=== PATIENT | female | born 1965 | race Caucasian/White ===

== ENCOUNTER → 2017-04-03 | Outpatient (CLI) | payer MEDICAID ==
[~2017-04-03] MED LIST: GADOBUTROL 10 ML VIAL IVP ONE
== END ==
LOC: FIMAGING 11:45
PROVIDERS: ATTEND Psychiatry & Neurology Neurology
DX: R90.82 White matter disease, unspecified (principal); M50.33 Other cervical disc degeneration, cervicothoracic region; M50.822 Other cervical disc disorders at C5-C6 level
CPT/HCPCS: A9585

== ENCOUNTER → 2017-12-10 | Outpatient (CLI) | payer MEDICAID | LOC: CIMAGING 11:07 | PROVIDERS: ATTEND Family Medicine | DX: R05 Cough (principal); R10.11 Right upper quadrant pain; G37.3 Acute transverse myelitis in demyelinating disease of central nervous system | CPT/HCPCS: 36415-PO; 71046-PO; 80307; G0480; G0483 ==